=== PATIENT | male | born 1945 | race Caucasian/White ===

== ENCOUNTER 2020-06-26 09:15 | Inpatient (IN) ==
[2020-06-26] MEDS ORDERED: Ondansetron 4 MG/2 ML VIAL IVP PRN (13:52)
[2020-06-26] MEDS ORDERED: Dextrose Gel 15 GM/37.5 ML TUBE PO PRN ×2 (13:55)
[2020-06-26] MEDS ORDERED: *HR* Dextrose 50 % in Water (Vial) 50 ML VIAL IVP PRN (13:55)
[2020-06-26] MEDS ORDERED: D5% in Water 1,000 ML IVC PRN (13:55)
[2020-06-26] MEDS: Insulin LISPRO 300 UNITS/3 ML VIAL SUBQ SCH ×2 (17:50→20:26)
[2020-06-26] MEDS: Acetaminophen 325 MG TABLET PO PRN (17:56)
[2020-06-26] MEDS: Furosemide 40 MG/4 ML VIAL IVP SCH (17:57)
[2020-06-26] MEDS: QUEtiapine Fumarate 25 MG TABLET PO SCH (20:24)
[2020-06-26] MEDS: Insulin DETEMIR 100 UNIT/ML X5UNITS SUBQ SCH (20:25)
[2020-06-26] MEDS: atenoloL 25 MG TABLET PO SCH (20:25)
[2020-06-27] MEDS: Acetaminophen 325 MG TABLET PO PRN ×4 (01:52→22:44)
[2020-06-27 06:22] LABS: Hematocrit 28.2 % (37.5-50.1); Hemoglobin 8.8 g/dL (12.9-16.9); Mean Corpuscular HGB Conc 31.2 g/dL (31.6-35.5); Mean Corpuscular Hemoglobin 30.9 pg (28.0-33.3); Mean Corpuscular Volume 98.9 fL (83.0-100.0); Mean Platelet Volume 10.7 fL (9.4-12.4); Platelet Count 152 K/mcL (140-400); Red Blood Count 2.85 M/mcL (4.19-5.50); Red Cell Distribution Width 18.6 % (11.5-14.5); White Blood Count 6.2 K/mcL (4.3-11.1)
[2020-06-27 06:56] LABS: Calcium 8.7 mg/dL (8.6-10.3); Potassium 3.5 mEq/L (3.5-5.1)
[2020-06-27] MEDS: atenoloL 25 MG TABLET PO SCH ×2 (08:31→21:36)
[2020-06-27] MEDS: Insulin LISPRO 300 UNITS/3 ML VIAL SUBQ SCH ×4 (08:31→21:39)
[2020-06-27] MEDS: Furosemide 40 MG/4 ML VIAL IVP SCH ×2 (08:31→16:41)
[2020-06-27] MEDS: Aspirin Enteric Coated 81 MG Tablet PO SCH (08:31)
[2020-06-27] MEDS: Nystatin SUSP 5 ML UD.LIQ PO SCH ×3 (14:38→21:35)
[2020-06-27] MEDS: QUEtiapine Fumarate 25 MG TABLET PO SCH (21:35)
[2020-06-27] MEDS: Insulin DETEMIR 100 UNIT/ML X5UNITS SUBQ SCH (22:46)
[2020-06-28 07:57] LABS: Basophils % 0.2 %; Eosinophils # 0.4 K/mcL (0.0-0.6); Eosinophils % 6.8 %; Hematocrit 28.6 % (37.5-50.1); Hemoglobin 8.8 g/dL (12.9-16.9); Immature Granulocytes % 0.4 % (0-4); Lymphocytes # 0.4 K/mcL (0.6-4.6); Mean Corpuscular HGB Conc 30.8 g/dL (31.6-35.5); Mean Corpuscular Hemoglobin 30.6 pg (28.0-33.3); Mean Corpuscular Volume 99.3 fL (83.0-100.0); Mean Platelet Volume 10.5 fL (9.4-12.4); Monocytes # 0.5 K/mcL (0.0-1.3); Monocytes % 9.5 %; Platelet Count 132 K/mcL (140-400); Red Blood Count 2.88 M/mcL (4.19-5.50); Red Cell Distribution Width 18.4 % (11.5-14.5); Segmented Neutrophils % 76.1 %; White Blood Count 5.3 K/mcL (4.3-11.1)
[2020-06-28 08:15] LABS: Albumin 3.1 g/dL (3.5-5.7); Albumin/Globulin Ratio 1.3 (1.1-2.2); Bilirubin,Total 0.8 mg/dL (0.3-1.0); Calcium 8.2 mg/dL (8.6-10.3); Globulin 2.3 g/dL (2.4-3.5); Magnesium 1.6 mg/dL (1.6-2.6); Potassium 3.5 mEq/L (3.5-5.1); Total Protein 5.4 g/dL (6.4-8.9)
[2020-06-28] MEDS ORDERED: *HR* LORazepam 0.5 MG TABLET PO PRN (08:20)
[2020-06-28] MEDS: Gabapentin 100 MG CAPSULE PO SCH ×3 (08:46→19:45)
[2020-06-28] MEDS: atenoloL 25 MG TABLET PO SCH ×2 (08:46→19:45)
[2020-06-28] MEDS: Aspirin Enteric Coated 81 MG Tablet PO SCH (08:46)
[2020-06-28] MEDS: Nystatin SUSP 5 ML UD.LIQ PO SCH ×4 (08:46→19:46)
[2020-06-28] MEDS: Furosemide 40 MG/4 ML VIAL IVP SCH ×2 (08:47→16:39)
[2020-06-28] MEDS: Insulin LISPRO 300 UNITS/3 ML VIAL SUBQ SCH ×4 (08:47→19:48)
[2020-06-28] MEDS ORDERED: Budesonide/Formoterol 160/4.5 1 PUFF INH IH SCH (11:00)
[2020-06-28 19:22] VITALS: BP 116/72
[2020-06-28] MEDS: QUEtiapine Fumarate 25 MG TABLET PO SCH (19:45)
[2020-06-28] MEDS: Acetaminophen 325 MG TABLET PO PRN (19:49)
[2020-06-28] MEDS: Insulin DETEMIR 100 UNIT/ML X5UNITS SUBQ SCH (19:50)
== END 2020-06-28 22:31 | disposition expired | DRG 177 ==
LOC: INPPIK 17:15
PROVIDERS: ADMIT Family Medicine; ATTEND Family Medicine